=== PATIENT | female | born 1955 | race Caucasian/White ===

== ENCOUNTER 2018-06-02 15:00 | Emergency (ER) | payer OTHER ==
[2018-06-02] MEDS ORDERED: NS 1,000 ML IV ONE (15:09)
[2018-06-02 15:15] LABS: PLATELET COUNT 291 10^3/uL (150-400)
--- NOTE | 2018-06-02 15:52 | EDPHY ---
H & P Time Seen by Provider: 06/02/18 15:40 HPI/ROS: CHIEF COMPLAINT: Dizzy and lightheaded HISTORY OF PRESENT ILLNESS: Patient gave blood and ended around 12:30 p.m. Today. [facility] then felt more more lightheaded and dizzy with associated nausea. It has been more than 10 years since she gave blood. On EMS arrival she had heart rate in the 50s with blood pressure in the 80s, they gave her Zofran and transported her here for evaluation. At the time of my evaluation she already had 2 L IV normal saline, feels better , sitting up, tolerating oral fluids. Not associated with vertigo or neck pain or chest pain or shortness of breath. REVIEW OF SYSTEMS: Eye: no change in vision ENT: no sore throat Cardiac: no chest pain or syncope Pulmonary: no cough or SOB Abdomen: no vomiting, diarrhea, abdominal pain Musculoskeletal: no back pain Skin: no rash Neuro: She had a mild headache earlier which has resolved. Constitutional: no fever : no urinary symptoms A comprehensive 10 point review of systems is otherwise negative aside from elements mentioned in the history of present illness. PAST MEDICAL HISTORY: Depression, high cholesterol, wrist surgery Social history: , [facility] patient General Appearance: Alert and conversant, cooperative. Eyes: No scleral icterus. ENT, Mouth: Normal mucous membranes. Respiratory: Normal respiratory effort, breath sounds equal, lungs are clear to auscultation. Cardiovascular: Regular rate and rhythm. Gastrointestinal: Abdomen is soft and non tender. Neurological: Alert, face symmetric, normal motor and sensory in extremities. Skin: Warm and dry, no rashes. Musculoskeletal: No peripheral edema. Psychiatric: Not agitated. Emergency Department course/MDM: Likely had near-syncope because of just having given blood. Normal sinus rhythm, feels better after IV fluids. Got Zofran by EMS, vital signs normalizing in the ED with resolution of hypotension. BP up to 104/60. Smoking Status: Never smoked Constitutional: Initial Vital Signs Temperature (C) 36.4 C 06/02/18 15:06 Heart Rate 70 06/02/18 15:06 Respiratory Rate 18 06/02/18 15:06 O2 Sat (%) 97 06/02/18 15:06 O2 Delivery Mode Room Air Allergies/Adverse Reactions: No Known Allergies Allergy (Unverified 06/02/18 15:06) Home Medications: Medication Instructions Recorded Unknown Cholestrol Med 06/02/18 Wellbutrin 100mg SR (*) 06/02/18 Medical Decision Making - Diagnostics EKG Interpretation: 12-lead EKG interpreted by me; official reading is in computer system. My interpretation is sinus rhythm rate 70 with APC and borderline right axis. Differential Diagnosis: Much more likely due to hypovolemia after blood donation, less likely to be malignant dysrhythmia, stroke, metabolic abnormality, GI bleed - Data Points Laboratory Results: Laboratory Results 06/02/18 15:09 06/02/18 15:09 06/02/18 06/02/18 15:09 15:09 WBC 8.75 10^3/uL 10^3/uL (3.80-9.50) RBC 4.55 10^6/uL 10^6/uL (4.18-5.33) Hgb 13.8 g/dL g/dL (12.6-16.3) Hct 41.3 % % (38.0-47.0) MCV 90.8 fL fL (81.5-99.8) MCH 30.3 pg pg (27.9-34.1) MCHC 33.4 g/dL g/dL (32.4-36.7) RDW 12.5 % % (11.5-15.2) Plt Count 291 10^3/uL 10^3/uL (150-400) MPV 10.7 fL fL (8.7-11.7) Neut % (Auto) 60.3 % % (39.3-74.2) Lymph % (Auto) 30.2 % % (15.0-45.0) Wilkinson % (Auto) 6.2 % % (4.5-13.0) Eos % (Auto) 2.6 % % (0.6-7.6) Baso % (Auto) 0.6 % % (0.3-1.7) Nucleat RBC Rel Count 0.0 % % (0.0-0.2) Absolute Neuts (auto) 5.28 10^3/uL 10^3/uL (1.70-6.50) Absolute Lymphs (auto) 2.64 10^3/uL 10^3/uL (1.00-3.00) Absolute Monos (auto) 0.54 10^3/uL 10^3/uL (0.30-0.80) Absolute Eos (auto) 0.23 10^3/uL 10^3/uL (0.03-0.40) Absolute Basos (auto) 0.05 10^3/uL 10^3/uL (0.02-0.10) Absolute Nucleated RBC 0.00 10^3/uL 10^3/uL (0-0.01) Immature Gran % 0.1 % % (0.0-1.1) Immature Gran # 0.01 10^3/uL 10^3/uL (0.00-0.10) Sodium 138 mEq/L mEq/L (135-145) Potassium 3.9 mEq/L mEq/L (3.3-5.0) Chloride 104 mEq/L mEq/L (97-110) Carbon Dioxide 23 mEq/l mEq/l (22-31) Anion Gap 11 mEq/L mEq/L (6-14) BUN 17 mg/dL mg/dL (7-23) Creatinine 0.8 mg/dL mg/dL (0.6-1.0) Estimated GFR > 60 Glucose 204 mg/dL H mg/dL (70-100) Calcium 9.0 mg/dL mg/dL (8.5-10.4) Medications Given: Discontinued Medications Sodium Chloride (Ns) 1,000 mls @ 3,000 mls/hr IV ONCE ONE Stop: 06/02/18 15:28 Last Admin: 06/02/18 15:42 Dose: 1,000 mls Departure - Departure Disposition: Home, Routine, Self-Care Clinical Impression: Near syncope Condition: Good Instructions: Near Syncope (ED) Referrals: [facility] ,. [Edm Groups for Call Sched] - As per Instructions
[2018-06-02 16:26] VITALS: BP 104/60
--- NOTE | 2018-06-02 18:53 | CPEKG ---
Test Reason : OPEN Blood Pressure : / mmHG Vent. Rate : 070 BPM Atrial Rate : 071 BPM P-R Int : 150 ms QRS Dur : 076 ms QT Int : 405 ms P-R-T Axes : 068 086 073 degrees QTc Int : 437 ms Sinus rhythm Atrial premature complex Borderline right axis deviation Confirmed by Humaira Villela ([id number]) on 06/02/2018 6:52:55 PM Referred By: Confirmed By:Humaira Villela
== END 2018-06-02 16:25 | disposition home or self-care (01) ==
LOC: EDUNIT#
DX: R55 Syncope and collapse (principal); E78.00 Pure hypercholesterolemia, unspecified; F32.9 Major depressive disorder, single episode, unspecified